=== PATIENT | male | born 1990 | race Caucasian/White ===

== ENCOUNTER 2020-07-11 21:27 | Emergency (ER) | payer OTHER ==
[~2020-07-11] VITALS: Ht 180.3 cm; Wt 72.6 kg
[2020-07-11] MEDS ORDERED: ZOVIRAX30 GM OP (23:37)
[2020-07-11] MEDS ORDERED: POLYMYXIN B/TMP10 ML OP (23:37)
[2020-07-11] MEDS ORDERED: REFRESH CLASSI1 EACH OP (23:37)
[2020-07-11] MEDS ORDERED: TRIFLURIDINE7.5 ML OP (23:45)
== END 2020-07-11 23:18 | disposition home or self-care (01) ==
LOC: ER 21:27
DX: B00.50 Herpesviral ocular disease, unspecified (principal)